=== PATIENT | male | born 1995 | race Caucasian/White ===

== ENCOUNTER 2017-03-28 05:43 | Emergency (ER) | payer BC ==
[~2017-03-28] VITALS: Ht 162.6 cm; Wt 54.3 kg
[~2017-03-28 05:43] MED LIST: ATIVAN0.5 MG PO; CIPRO500 MG PO; MOTRIN600 MG PO; NORCO 5/3251 TABLET PO
[2017-03-28 06:25] LABS: HEMATOCRIT 45.4 % (38.0-50.0); MCH 30.8 PG (29.0-34.0); MCHC 33.5 G/DL (30.0-36.0); MCV 92.1 FL (86-99); MEAN PLAT.VOLUME 10.1 uM^3 (9.0-12.4); PLATELET COUNT 244 K/uL (156-360); RBC DIS.WIDTH-CV 12.9 % (11.8-14.6); RBC DIS.WIDTH-SD 43.8 % (39-53); RED BLOOD COUNT 4.93 M/uL (4.00-5.50)
[2017-03-28 06:30] LABS: CHLORIDE 108 mEq/L (99-109); POTASSIUM 3.7 mEq/L (3.7-5.4); SODIUM 144 mEq/L (136-147)
[2017-03-28 06:31] LABS: GLUCOSE 96 mg/dL (70-99)
[2017-03-28 06:33] LABS: ANION GAP 9 MEQ/L (2-14)
[2017-03-28 06:35] LABS: GFR ESTIMATE (CALCULATED) > 59 mL/min/
[2017-03-28 06:36] LABS: UREA NITROGEN (BUN) 13 mg/dL (9-23)
[2017-03-28 06:57] LABS: ADD MIUA? YES; BILIRUBIN NEGATIVE; BLOOD LARGE; COLOR YELLOW ((YELLOW)); GLUCOSE (STRIP) NEGATIVE; KETONES NEGATIVE; LEUKOCYTES NEGATIVE; NITRITE NEGATIVE; PROTEIN (STRIP) 30; SPECIFIC GRAVITY 1.019 (1.000-1.030)
[2017-03-28 07:19] LABS: BACTERIA 2+ /HPF; EPITHELIAL CELLS 1+ /HPF; MUCUS 2+ /LPF; RED BLOOD CELLS TNTC /HPF (0-5); UCUL ADDED? YES
[2017-03-28] MEDS ORDERED: LEVAQUIN500 MG PO (09:41)
[2017-03-28 10:07] VITALS: BP 104/50
== END 2017-03-28 10:09 | disposition home or self-care (01) ==
LOC: EME 05:43
DX: N39.0 Urinary tract infection, site not specified (principal); Z87.442 Personal history of urinary calculi; F17.200 Nicotine dependence, unspecified, uncomplicated
CPT/HCPCS: 74176; 80048; 81003; 85027; 87086; 99281; 99283